=== PATIENT | male | born 1985 | race Caucasian/White ===

== ENCOUNTER 2020-07-22 07:04 | Outpatient (NON) | payer OTHER, SELFPAY ==
[2020-07-22 18:46] LABS: SARS-CoV-2 RNA PCR Negative
== END 2020-07-22 07:05 ==
LOC: ANHCOVIDDT 07:04
PROVIDERS: PCP Family Medicine Adolescent Medicine; Visit Provider Family Medicine Adolescent Medicine
DX: Z20.822 Contact with and (suspected) exposure to COVID-19 (principal); R05 Cough; R53.83 Other fatigue; R09.89 Other specified symptoms and signs involving the circulatory and respiratory systems
CPT/HCPCS: C9803; U0003; U0005

== ENCOUNTER → 2020-10-07 06:58 | Outpatient (CLI) | payer OTHER, SELFPAY ==
[2020-10-07 22:40] LABS: SARS-CoV-2 RNA PCR Negative
== END ==
PROVIDERS: PCP Family Medicine Adolescent Medicine; Visit Provider Family Medicine Adolescent Medicine
DX: M79.10 Myalgia, unspecified site (principal); R53.83 Other fatigue; R19.7 Diarrhea, unspecified; Z20.822 Contact with and (suspected) exposure to COVID-19
CPT/HCPCS: C9803; U0003; U0005

== ENCOUNTER 2022-08-23 21:59 | Emergency (ER) | payer SELFPAY ==
[2022-08-23 22:10] VITALS: BP 132/92; PULSE 85; RESP 18; TEMP 36.9; O2SAT 99
--- NOTE | 2022-08-24 00:36 | ED.BACK ---
HPI - Back Pain/Injury General Chief Complaint: Back Pain/Injury <LAKISHA Schroeder Last Filed: 08/24/22 01:32> Stated Complaint: back pain <LAKISHA Schroeder Last Filed: 08/24/22 01:32> Time Seen by Provider: 08/24/22 00:06 <LAKISHA Schroeder Last Filed: 08/24/22 01:32> History of Present Illness HPI Narrative: This is a 37-year-old male presents with chief complaint of left-sided mid back pain x2 days. Patient states that he has been dealing with this for 10 years but slept on the couch a couple days ago and made it worse. He states today around 6 PM he started having numbness and tingling that radiates down the left arm. Describes neck pain and back pain along the traps distribution which is very familiar to him. There is no right-sided pain. Reports it is made worse with left arm range of motion and neck range of motion. Denies chest pain, shortness of breath, or pain that radiates down the arm. Denies fevers, chills, IV drug use. Denies weakness. Denies trauma. <LAKISHA Schroeder Last Filed: 08/24/22 01:32> Related Data Allergies/Adverse Reactions: Allergies Allergy/AdvReac Type Severity Reaction Status Date / Time penicillin G Allergy Mild Unknown Verified 08/24/22 01:02 amoxicillin [From Augmentin] Allergy Rash Verified 08/24/22 01:02 clavulanic acid Allergy Rash Verified 08/24/22 01:02 [From Augmentin] <LAKISHA Schroeder Last Filed: 08/24/22 01:32> Review of Systems Review of Systems: CONSTITUTIONAL: Denies fever, chills, or sweats. CV: Denies chest pain or dyspnea SKIN: Denies rash or itching. Denies any skin changes. MUSCULOSKELETAL: Endorses mid back pain and left-sided neck pain. Denies joint pain, myalgia. NEUROLOGIC: Denies headache, dizziness, or weakness.. endorses numbness, tingling. PSYCHIATRIC: Denies anxiety or depression. <LAKISHA Schroeder Last Filed: 08/24/22 01:32> [facility] Social History Social History: Social History Smoking status: Former smoker Tobacco type: cigarettes Alcohol intake: current Alcohol use details: weekend drinker Substance use: never Substance use type: does not use <Rocky Moe PA-C - Last Filed: 08/24/22 01:32> Exam Narrative: GENERAL: Well-appearing, well-nourished, and in no acute distress. HEAD: Normocephalic, atraumatic. Neck: Tenderness to palpation of the left paraspinal muscles in the C-spine. Follows the trapezius distribution. No midline tenderness. Pain is worsened with rightward rotation, extension and flexion of the cervical spine. Back: No midline tenderness throughout the back. Left-sided thoracic no tenderness present. EXTREMITIES: Normal range of motion in the RUE. Left upper extremity range of motion limited due to pain. No signs of rotator cuff tear. no edema. 5 out of 5 strength and sensation in BUE. SKIN: Warm, dry, no rash. NEURO: Alert and oriented x3. No focal deficits. PSYCH: Normal mood and affect. <Rocky Moe PA-C - Last Filed: 08/24/22 01:32> Course [employer] Physician Supervision For this encounter, I have reviewed the mid-level provider documentation, treatment plan and medical decision making. I have had kuuj-[id number] time with the patient. 37-year-old male presenting with chronic upper back pain from a injury. The patient has pain over his trapezius and neurologic pain in the T1-T2 distribution. findings were explained to the patient he be discharged trial NSAIDs and muscle relaxers. All questions answered. Patient in agreement w/ disposition. <Maurice Luu MD - Last Filed: 08/25/22 19:42> Vital Signs Vital signs: Vital Signs Temperature 98.5 F 08/23/22 22:10 Pulse Rate 85 08/23/22 22:10 Respiratory Rate 18 08/23/22 22:10 Blood Pressure 132/92 H 08/23/22 22:10 Pulse Oximetry 99 08/23/22 22:10 Oxygen Delivery Room Air 08/23/22 22:10 Temperatu
[2022-08-24] MEDS: predniSONE 20 MG TABLET PO (00:57)
[2022-08-24] MEDS: LIDOCAINE 5% PATCH 1 PATCH TRANSDERM (00:57)
[2022-08-24 01:07] VITALS: BP 142/100; PULSE 79; RESP 18; O2SAT 99
== END 2022-08-24 01:08 | disposition home or self-care (01) ==
PROVIDERS: Emergency Provider Physician Assistant; PCP Family Medicine Adolescent Medicine
DX: M54.12 Radiculopathy, cervical region (principal); S46.812A Strain of other muscles, fascia and tendons at shoulder and upper arm level, left arm, initial encounter; Z87.891 Personal history of nicotine dependence; X58.XXXA Exposure to other specified factors, initial encounter
CPT/HCPCS: 99283; A9270; J7512